=== PATIENT | male | born 1980 | race African-American/Black ===

== ENCOUNTER 2022-02-05 16:09 | Emergency (ER) | payer OTHER ==
[2022-02-05 16:42] VITALS: BP 105/67; PULSE 61; TEMP 98.7; BMI 22.6
[2022-02-05] MEDS ORDERED: diazePAM 5 MG TABLET PO ONE (17:38)
[2022-02-05] MEDS ORDERED: KETOROLAC TROMETHAMINE 30 MG/1 ML VIAL IM ONE (17:38)
[2022-02-05] MEDS ORDERED: LIDOCAINE 5% TOPICAL PATCH TP ONE (17:38)
[2022-02-05] MEDS ORDERED: LIDOCAINE 5% TOPICAL PATCH ONE (18:10)
[2022-02-05] MEDS ORDERED: diazePAM 5 MG TABLET ONE (18:11)
[2022-02-05] MEDS ORDERED: KETOROLAC TROMETHAMINE 30 MG/1 ML VIAL ONE (18:11)
[2022-02-06] MEDS ORDERED: LIDOCAINE PATCH REMOVAL MC SCH (06:00)
== END 2022-02-05 19:38 | disposition home or self-care (01) ==
LOC: JER 16:09
PROC: 3E0233Z Introduction of Anti-inflammatory into Muscle, Percutaneous Approach (ICD-10-PCS; principal; 2022-02-05)
DX: M54.50 Low back pain, unspecified (principal)
CPT/HCPCS: 72100-TC-FY; 99284-25

== ENCOUNTER 2023-05-26 11:05 | Emergency (ER) | payer OTHER ==
[2023-05-26 11:14] VITALS: BMI 21.9
[2023-05-26] MEDS ORDERED: IBUPROFEN 400 MG TABLET (FP) PO ONE (12:11)
[2023-05-26] MEDS ORDERED: DEXAMETHASONE SOD PHOSPHATE 10 MG/1 ML VIAL IVPUSH ONE (12:13)
[2023-05-26] MEDS ORDERED: ACETAMINOPHEN 325 MG TABLET (FP) PO ONE ×2 (12:14→18:37)
[2023-05-26] MEDS ORDERED: ACETAMINOPHEN 325 MG TABLET (FP) ONE ×2 (12:23→18:38)
[2023-05-26] MEDS ORDERED: DEXAMETHASONE SOD PHOSPHATE 10 MG/1 ML VIAL ONE (12:24)
[2023-05-26 13:29] LABS: BASO % 0.6 % (0-2.0); EOS % 1.5 % (0-4.5); HEMATOCRIT 43.1 % (35.4-49); HEMOGLOBIN 13.9 GM/dL (11.7-16.9); LYMPH % 20.6 % (8-40); MCH 28.2 pg (25.7-33.7); MCHC 32.3 g/dl (32.0-35.9); MEAN CELL VOLUME 87.4 fl (80-96); MEAN PLT VOLUME 7.1 fl (7.5-11.1); MONO % 10.7 % (3.8-10.2); NEUT % 66.6 % (42.8-82.8); PLATELET COUNT 406 10^3/uL (134-434); RBC 4.93 M/mm3 (4.00-5.60); RDW 15.7 % (11.9-15.9); WHITE BLOOD COUNT 11.4 K/mm3 (4.0-10.0)
[2023-05-26 13:46] LABS: POTASSIUM 4.5 mmol/L (3.5-5.1)
[2023-05-26 13:48] LABS: ALBUMIN 3.7 g/dl (3.4-5.0); BLOOD UREA NITROGEN 16.7 mg/dL (7-18); CALCIUM 9.4 mg/dL (8.5-10.1)
[2023-05-26 13:51] LABS: CREATININE 0.7 mg/dL (0.55-1.3)
[2023-05-26 13:53] LABS: BILIRUBIN,TOTAL 1.2 mg/dL (0.2-1); TOT PROT 7.1 g/dl (6.4-8.2)
[2023-05-26 16:34] VITALS: TEMP 98.1
[2023-05-26] MEDS ORDERED: KETOROLAC TROMETHAMINE 30 MG/1 ML VIAL IM ONE (18:34)
[2023-05-26] MEDS ORDERED: KETOROLAC TROMETHAMINE 30 MG/1 ML VIAL ONE (18:39)
[2023-05-26] MEDS ORDERED: KETOROLAC TROMETHAMINE 30 MG/1 ML VIAL IVPUSH ONE (18:41)
[2023-05-26 18:55] VITALS: BP 115/72; PULSE 59; RESP 16
== END 2023-05-26 18:55 | disposition home or self-care (01) ==
LOC: JER 11:05 → JERFT 11:05
PROC: 3E0333Z Introduction of Anti-inflammatory into Peripheral Vein, Percutaneous Approach (ICD-10-PCS; principal; 2023-05-26)
PROC: 3E033GC Introduction of Other Therapeutic Substance into Peripheral Vein, Percutaneous Approach (ICD-10-PCS; 2023-05-26)
DX: M54.50 Low back pain, unspecified (principal); R20.2 Paresthesia of skin; R20.0 Anesthesia of skin; M51.26 Other intervertebral disc displacement, lumbar region
CPT/HCPCS: 36415; 72100-TC-FY; 72148-TC; 73502-TC-RT-FY; 80053; 85025; 99285-25; J1100